=== PATIENT | female | born 1970 | race Hispanic/Latino ===

== ENCOUNTER 2017-12-16 16:27 | Outpatient (CLI) | payer OTHER ==
--- NOTE | 2017-12-16 16:45 | RAD ---
RIGHT KNEE TWO VIEWS 12/16/17 HISTORY: Acute pain. COMPARISON: None. FINDINGS: Minimal degenerative change of the medial compartment with osteophyte formation. No fractures or comfort lignment. No joint effusion. IMPRESSION: Minimal degenerative changes in the medial compartment. POS: [facility]
== END 2017-12-16 16:28 | disposition home or self-care (01) ==
LOC: RAD 16:27
PROVIDERS: ATTEND Family Medicine
DX: M25.561 Pain in right knee (principal)